=== PATIENT | male | born 1985 | race Caucasian/White ===

== ENCOUNTER 2016-11-10 16:00 | Emergency (ER) | payer BC ==
[2016-11-10 16:17] VITALS: RESP 16; TEMP 98.4
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
[2016-11-10] MEDS ORDERED: OXYCODONE/APAP 5/325 TAB ONE (17:19)
[2016-11-10] MEDS ORDERED: OXYCODONE/APAP 5/325 TAB PO ONE (17:30)
[2016-11-10] MEDS ORDERED: LIDOCAINE 2% JELLY 5 ML TUBE ONE (18:35)
[2016-11-10 19:35] VITALS: BP 139/86; PULSE 61; O2SAT 98
== END 2016-11-10 19:34 | disposition home or self-care (01) ==
LOC: EDBD → EDUNIT#
DX: S09.93XA Unspecified injury of face, initial encounter (principal); S46.001A Unspecified injury of muscle(s) and tendon(s) of the rotator cuff of right shoulder, initial encounter; V13.4XXA Pedal cycle driver injured in collision with car, pick-up truck or van in traffic accident, initial encounter; Y92.410 Unspecified street and highway as the place of occurrence of the external cause